=== PATIENT | male | born 1945 | race Caucasian/White ===

== ENCOUNTER 2016-08-17 15:57 | Emergency (ER) | payer MEDICARE, BC ==
[~2016-08-17] VITALS: Ht 175.3 cm; Wt 75.0 kg
[~2016-08-17 15:57] MED LIST: LORT5TAB PO; SULF-154 PO
[2016-08-17 16:00] VITALS: BP 154/78; PULSE 66; RESP 16; TEMP 97.9; O2SAT 96
[2016-08-17] MEDS ORDERED: ZANT150T2 PO (16:20)
[2016-08-17] MEDS ORDERED: METO50TA PO (16:20)
[2016-08-17] MEDS ORDERED: NEXI40CA PO (16:20)
[2016-08-17] MEDS ORDERED: AMLO5TAB2 PO (16:20)
[2016-08-17] MEDS ORDERED: SIMV40TA PO (16:20)
[2016-08-17] MEDS ORDERED: BUPIVACAINE HCL PF 0.5% 10 ML VIAL INFIL ONE (16:45)
[2016-08-17] MEDS ORDERED: TETANUS/DIPHTHERIA TOXOID ADULT 0.5 ML VIAL IM ONE (16:45)
[2016-08-17] MEDS ORDERED: LIDOCAINE HCL 1% 50 ML VIAL INFIL ONE (16:45)
--- NOTE | 2016-08-17 16:51 | PD ---
HPI Chief Complaint: Injury Time Seen by Provider: 16:49 Travel History International Travel<30 days: No Contact w/Intl Traveler<30days: No Traveled to known affect area: No History of Present Illness HPI Patient comes in for evaluation of foreign body in his left thumb occurred shortly prior to arrival. Patient states he was using a nail gun when he accidentally shot a nail in his left finger. Patient states he did cut off the nail prior to coming to the emergency department as it was attached to the board. Patient uncertain of his last tetanus shot. Patient reports slight burning sensation around the site of the entry wound without radiation. Pain is worse palpation. Denies anything making it better. Denies doing anything for this prior coming to the emergency department. PFSH Past Medical History GERD: Yes Hypertension: Yes Inguinal Hernia: Yes Tetanus Vaccination: > 5 Years Influenza Vaccination: No Past Surgical History Abdominal Surgery: Yes (RIGHT INGUINAL HERNIA) Social History Alcohol Use: Yes Tobacco Use: No Substance Use: No Allergies-Medications (Allergen,Severity, Reaction): Coded Allergies: No Known Allergies (Verified , 05/12/09) Reported Meds & Prescriptions Reported Meds & Active Scripts Active Keflex (Cephalexin) 500 Mg Cap 500 Mg PO Q12H 7 Days Reported Zantac (Ranitidine HCl) 150 Mg Tab 150 Mg PO DAILY Metoprolol Tartrate 50 Mg Tab 50 Mg PO DAILY Simvastatin 40 Mg Tab 40 Mg PO HS Amlodipine (Amlodipine Besylate) 5 Mg Tab 5 Mg PO DAILY Nexium (Esomeprazole DR) 40 Mg Capdr 40 Mg PO DAILY Review of Systems Except as stated in HPI: all other systems reviewed are Neg Physical Exam Narrative GENERAL: Well-developed, well nourished, in no acute distress, and non-ill appearing. SKIN: Warm and dry. Foreign body with puncture wound noted on the palmar surface of the left thumb distal phalanx. Neurovascularly intact distally. Full range of motion. HEAD: Atraumatic. Normocephalic. EYES: Pupils equal and round. EOMI. No scleral icterus. No injection or drainage. ENT: No nasal bleeding or discharge. Mucous membranes pink and moist. NECK: Trachea midline. Supple. No nuclear rigidity. RESPIRATORY: No accessory muscle use. No respiratory distress. MUSCULOSKELETAL: No obvious deformities. No clubbing. No cyanosis. No edema. Full range of motion. NEUROLOGICAL: Awake and alert. No obvious cranial nerve deficits. Motor grossly within normal limits. Normal speech. PSYCHIATRIC: Appropriate mood and affect; insight and judgment normal. Data Data Last Documented VS Vital Signs Date Time Temp Pulse Resp B/P Pulse Ox O2 Delivery O2 Flow Rate FiO2 08/17/16 16:20 Room Air 08/17/16 16:00 97.9 66 16 154/78 96 Orders Finger ([id number]) (08/17/16 ) Tetanus/Diphtheria Tox Adult (Tetanus/Di (08/17/16 16:45) Bupivacaine Pf 0.5% Inj (Marcaine Pf 0.5 (08/17/16 16:45) Lidocaine 1% Inj (50 Ml) (Xylocaine 1% I (08/17/16 16:45) MDM Medical Decision Making Medical Screen Exam Complete: Yes Emergency Medical Condition: Yes Differential Diagnosis Foreign body, puncture wound, laceration, abrasion, other Narrative Course The patient had a normal distal vascular exam, and had full normal motor and sensory exams. There was also no evidence or tendon injury, with normal distal full range of motions, flexion, extension, abduction, adduction and opponens. There was no evidence of local joint space involvement at this time. The patient was irrigated with copious sterile normal saline after foreign body was removed. Please see procedure note. The patient was given signs and symptom warnings for infection, such as increasing pain, redness, swelling, associated heat, pus or fever. The patient was given instructions for timely follow up. The patient agreed with plan of care. Patient in no obvious distress upon re-evaluation. All pertinent Radiology result(s) discussed with patient. Patient was asked if they wanted to speak to my attending, which the patient did not wish to do at this time. Any questions/ concerns in reference to patient diagnosis/condition discussed and clarified prior to patient's discharge. Reinforced sheer importance of close follow up with patient's primary physician or primary care clinic and/or hand surgeon. Instructed patient to return to ED immediately, if symptoms return/worsen. Pt showed understanding of above instructions. Further instructions and recommendations were detailed in discharge paperwork. Pt ambulated without difficulty out of ED at discharge. Procedures Procedure Narrative Verbal consent was obtained. Digital block was performed using Marcaine without epi and lidocaine without epi. Foreign body was easily removed without resistance. Wound was irrigated with copious amounts of normal saline. Sterile dressing was placed by nurse. Patient tolerated procedure well. There was no complications. Diagnosis Primary Impression: Foreign body finger Referrals: Avril Wheeler MD Patient Instructions: General Instructions, Soft Tissue Foreign Body (ED) Additional Instructions: Follow-up with your primary care physician and/or hand surgeon this week for evaluation. Take all medication as prescribed. Keep wound dry and clean as possible using soap and water. Do not soak or submerge wound. Return to the emergency department if symptoms get worse. Med/Other Pt SpecificInfo: Prescription(s) given Scripts Cephalexin (Keflex)500 Mg [id number] Mg PO Q12H 7 Days Ref 0 Prov:Teresa Lomeli MD 08/17/16 Disposition: 01 DISCHARGE HOME Condition: Stable Tad Emery Aug 17, 2016 16:51
--- NOTE | 2016-08-17 17:02 | RADRPT ---
EXAM DATE/TIME: 08/17/2016 16:41 [facility] COMPARISON: No previous studies available for comparison. INDICATIONS : Left Hand, 1st Digit pain and puncture wound after carpentry accident, Evaluate for Foreign Body. MEDICAL HISTORY : None. SURGICAL HISTORY : None. ENCOUNTER: Initial ACUITY: 1 day PAIN SCORE: 3/10 LOCATION: Left hand, 1st Digit. FINDINGS: There is a radiopaque metallic foreign body within the soft tissues of the left 1st digit adjacent to the first distal phalanx. No fracture of the left first distal phalanx is noted. CONCLUSION: 1. Metallic foreign body noted within the soft tissues of the left 1st digit adjacent to the first d istal phalanx without underlying fracture. Aureliano Powers MD on August 17, 2016 at 16:54 Board Certified Radiologist. This report was verified electronically.
[2016-08-17] MEDS ORDERED: CEPH-460 PO (17:27)
== END 2016-08-17 17:58 | disposition home or self-care (01) ==
LOC: NEPB 15:57
DX: S61.042A Puncture wound with foreign body of left thumb without damage to nail, initial encounter (principal); I10 Essential (primary) hypertension; K21.9 Gastro-esophageal reflux disease without esophagitis; Z23 Encounter for immunization; W45.0XXA Nail entering through skin, initial encounter
CPT/HCPCS: 64450; 73140; 90471; 90714